=== PATIENT | female | born 1980 ===

== ENCOUNTER 2017-12-31 16:58 | Emergency (ER) | payer MEDICAID ==
[2017-12-31 17:29] VITALS: BP 97/65; PULSE 93; RESP 20; TEMP 97.3; O2SAT 100
== END 2017-12-31 17:58 | disposition left against medical advice (07) ==
LOC: C.ER 16:58
DX: Z02.89 Encounter for other administrative examinations (principal); F19.10 Other psychoactive substance abuse, uncomplicated